=== PATIENT | male | born 1970 | race Caucasian/White ===

== ENCOUNTER 2021-01-30 16:15 | Inpatient (IN) | payer BC ==
[2021-01-30 16:37] LABS: Absolute Lymphocytes (CBC) 1.7 K/uL (0.7-4.9); Basophils % 1.3 % (0-1.3); Hematocrit 38.7 % (39.6-49.0); Lymphocytes % 32.8 % (15.3-44.8); MPV 9.3 fL (7.6-11.3); RBC Red Blood Cell Count 4.15 M/uL (4.33-5.43)
[2021-01-30] MEDS ORDERED: PIPER/TAZO/NS 3.375gm 3.375 GM/100 ML BAG ONE (16:43)
[2021-01-30] MEDS ORDERED: ONDANSETRON 4 MG/2 ML VIAL ONE (16:56)
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
[2021-01-30 17:17] LABS: Arterial Blood Carboxyhemoglob 0.9 % (0-1.5); Blood Gas Oxyhemoglobin 93.5 % (94-97); Blood O2 Saturation 95.4 % (92-98.5)
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
--- NOTE | 2021-01-30 17:35 | RAD REPORT ---
EXAM DESCRIPTION: RAD - Chest Single View - 01/30/2021 5:23 pm CLINICAL HISTORY: DYSPNEA Chest pain. COMPARISON: No comparisons FINDINGS: Portable technique limits examination quality. Mild interstitial pulmonary edema. The heart is mildly enlarged in size. No displaced fractures. IMPRESSION: Mild CHF.
[2021-01-30 17:38] LABS: Protime INR 0.94
[2021-01-30 18:01] LABS: ALT/SGPT 56 U/L (12-78); AST/SGOT 50 U/L (15-37); Albumin 3.9 g/dL (3.4-5.0); Alkaline Phosphatase 42 U/L (45-117); BUN Blood Urea Nitrogen 9 mg/dL (7-18); Bicarbonate 20 mmol/L (21-32); Bilirubin Direct < 0.1 mg/dL (0-0.2); Bilirubin Total 0.3 mg/dL (0.2-1.0); Glucose Level 86 mg/dL (74-106); Magnesium 2.5 mg/dL (1.8-2.4); NT PRO-BNP 26 pg/mL (<125); Potassium 3.9 mmol/L (3.5-5.1); Protein, Total 6.7 g/dL (6.4-8.2); Sodium Level 139 mmol/L (136-145); Troponin (Emerg Dept Use Only) 0.02 ng/mL (0.0-0.045)
[2021-01-30] MEDS ORDERED: NACHLORIDE 0.45% 1,000 ML IV SCH (20:18)
[2021-01-30] MEDS ORDERED: IPRATROPIUM BROM 0.5MG/2.5ML NEB PRN (20:18)
[2021-01-30] MEDS ORDERED: ONDANSETRON 4 MG/2 ML VIAL IV PRN (20:18)
[2021-01-30] MEDS ORDERED: ALBUTEROL 2.5 MG/3 ML NEB SOL NEB PRN (20:18)
[2021-01-30] MEDS ORDERED: ACETAMINOPHEN 500 MG TAB PO PRN (20:18)
[2021-01-30] MEDS ORDERED: BENZONATATE 100 MG CAP PO PRN (20:18)
[2021-01-30] MEDS: FAMOTIDINE 20 MG/2 ML VIAL IV SCH (22:03)
[2021-01-31 00:48] VITALS: BMI 26.2
[2021-01-31] MEDS ORDERED: PIPER/TAZO/NS 3.375gm 3.375 GM/100 ML BAG IVPB SCH (01:00)
[2021-01-31] MEDS ORDERED: PIPERACIL/TAZO 3.375 GM VIAL IV ONE (01:51)
[2021-01-31] MEDS ORDERED: NA CHLORIDE 0.9% 100 ML ONE (01:51)
[2021-01-31 04:29] LABS: Absolute Lymphocytes (CBC) 0.6 K/uL (0.7-4.9); Basophils % 0.5 % (0-1.3); Hematocrit 38.1 % (39.6-49.0); MPV 9.4 fL (7.6-11.3); RBC Red Blood Cell Count 4.06 M/uL (4.33-5.43)
[2021-01-31 04:42] LABS: ALT/SGPT 46 U/L (12-78); AST/SGOT 33 U/L (15-37); Albumin 3.6 g/dL (3.4-5.0); Alkaline Phosphatase 38 U/L (45-117); BUN Blood Urea Nitrogen 8 mg/dL (7-18); Bicarbonate 22 mmol/L (21-32); Bilirubin Total 0.7 mg/dL (0.2-1.0); Glucose Level 92 mg/dL (74-106); Magnesium 2.2 mg/dL (1.8-2.4); Potassium 4.2 mmol/L (3.5-5.1); Protein, Total 6.6 g/dL (6.4-8.2); Sodium Level 141 mmol/L (136-145)
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
[2021-01-31] MEDS: ENOXAPARIN 40 MG/0.4 ML SQ SCH (08:50)
[2021-01-31] MEDS: FAMOTIDINE 20 MG/2 ML VIAL IV SCH (08:51)
[2021-01-31] MEDS ORDERED: THIAMINE 200 MG/2 ML INJ IVP SCH (09:00)
[2021-01-31] MEDS ORDERED: FOLIC ACID 1 MG in NA CHLORIDE 0.9% 50 ML IV SCH (09:00)
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
[2021-01-31 09:29] LABS: Urine Appearance CLEAR (Clear); Urine Bilirubin NEGATIVE (Negative); Urine Blood NEGATIVE (Negative); Urine Color YELLOW (Yellow); Urine Glucose NEGATIVE (Negative); Urine Microscopic Reflex NO UMIC; Urine Protein NEGATIVE (Negative); Urine Urobilinogen 0.2 mg/dL (0.2-1.0); Urine pH 5.5 (5.0-7.0)
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
[2021-01-31] MEDS: FAMOTIDINE 20 MG TAB PO SCH (19:58)
[2021-01-31] MEDS ORDERED: MELATONIN 5 MG TABLET PO PRN (22:51)
[2021-02-01 05:34] LABS: Absolute Lymphocytes (CBC) 0.7 K/uL (0.7-4.9); Basophils % 1.3 % (0-1.3); Hematocrit 38.4 % (39.6-49.0); Lymphocytes % 11.4 % (15.3-44.8); MPV 9.3 fL (7.6-11.3); RBC Red Blood Cell Count 4.06 M/uL (4.33-5.43)
[2021-02-01 05:47] LABS: ALT/SGPT 31 U/L (12-78); AST/SGOT 15 U/L (15-37); Albumin 3.3 g/dL (3.4-5.0); Alkaline Phosphatase 39 U/L (45-117); BUN Blood Urea Nitrogen 6 mg/dL (7-18); Bicarbonate 26 mmol/L (21-32); Bilirubin Total 0.8 mg/dL (0.2-1.0); Glucose Level 106 mg/dL (74-106); Magnesium 2.2 mg/dL (1.8-2.4); Potassium 3.8 mmol/L (3.5-5.1); Protein, Total 6.4 g/dL (6.4-8.2); Sodium Level 139 mmol/L (136-145)
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
--- NOTE | 2021-02-01 07:26 | RAD REPORT ---
EXAM DESCRIPTION: [place] Pa And Lat (2 Views)02/01/2021 5:33 am CLINICAL HISTORY: Shortness breath COMPARISON: January 31 FINDINGS: Mild bilateral pulmonary opacities have developed. Heart is normal size IMPRESSION: Mild bilateral interstitial pulmonary opacities may indicate interstitial pulmonary kriss a
[2021-02-01] MEDS: FAMOTIDINE 20 MG TAB PO SCH (08:23)
[2021-02-01] MEDS: ENOXAPARIN 40 MG/0.4 ML SQ SCH (08:23)
[2021-02-01] MEDS ORDERED: THIAMINE HCL 100 MG TABLET PO SCH (09:00)
[2021-02-01] MEDS ORDERED: FOLIC ACID 1 MG TABLET PO SCH (09:00)
[2021-02-01 09:10] VITALS: O2SAT 91
[2021-02-01 09:50] VITALS: BP 174/105; TEMP 98.9
== END 2021-02-01 10:06 | disposition home or self-care (01) | DRG 189 ==
LOC: ER 16:15 → ERHOLD 17:12 → 2ND 19:31
PROVIDERS: ADMIT Family Medicine; ATTEND Family Medicine
PROC: 5A09357 Assistance with Respiratory Ventilation, Less than 24 Consecutive Hours, Continuous Positive Airway Pressure (ICD-10-PCS; principal; 2021-01-30)
DX: J96.01 Acute respiratory failure with hypoxia (principal); E86.0 Dehydration; I10 Essential (primary) hypertension; R11.0 Nausea; T75.1 Unspecified effects of drowning and nonfatal submersion; W69.XXXA Accidental drowning and submersion while in natural water, initial encounter; Z20.822 Contact with and (suspected) exposure to COVID-19
CPT/HCPCS: 36415; 71045; 71046; 80048; 80053; 80076; 81003; 82805; 83735; 83880; 84484; 85025; 85610; 87040; 93005; 93306; 94010; 94660; 94760; 96365; 96375; 99284; J1650; J2405; J2543; J3411; U0003